=== PATIENT | male | born 1940 | race Asian ===

== ENCOUNTER 2017-08-25 09:09 | Outpatient (CLI) | payer MEDICARE, OTHER ==
[2017-08-25] MEDS ORDERED: IOHEXOL-300 100 ML VIAL IV ONE (09:51)
[2017-08-25] MEDS ORDERED: IV NS 0.9% 500 ML IV ONE (09:51)
== END 2017-08-25 23:59 | disposition home or self-care (01) ==
LOC: CT 09:09
PROVIDERS: ATTEND Internal Medicine Pulmonary Disease
DX: I67.2 Cerebral atherosclerosis (principal); G31.9 Degenerative disease of nervous system, unspecified; J32.2 Chronic ethmoidal sinusitis; J32.0 Chronic maxillary sinusitis
CPT/HCPCS: 70470; J7040; Q9967

== ENCOUNTER 2017-10-30 16:55 | Inpatient (IN) | payer MEDICARE, OTHER ==
[~2017-10-30] VITALS: Ht 170.2 cm; Wt 69.9 kg
--- NOTE | 2017-10-30 17:08 | NUR ---
MEG FROM [facility] DT FEVER X TODAY. PATIENT IS AWAKE, HOWEVER NOT VERBALLY RESPONSIVE. PATIENT NOTED WITH TRACHE-- NOTED WITH GREENISH SECRETION. PT SKIN IS WARM TO TOUCH, FEBRILE AT THIS TIME. O2 PROVIDED,. CONNECTED PT TO TELE MONITOR.
[2017-10-30] MEDS ORDERED: ACETAMINOPHEN 650 MG/SUPP.RECT RC ONE ×2 (17:46→18:00)
[2017-10-30 17:48] LABS: BASOPHILS % (AUTO) 0.3 % (0.0-2.0); EOSINOPHILS % (AUTO) 0.3 % (0.0-6.0); HEMATOCRIT 33 % (39-51); HEMOGLOBIN 11.4 g/dL (13.5-17.5); LYMPHOCYTES # (AUTO) 1.4 /CMM (0.8-4.8); LYMPHOCYTES % (AUTO) 9.6 % (20.0-44.0); MEAN CORPUSCULAR HGB CONC 34 g/dl (31.0-36.0); MEAN CORPUSCULAR VOLUME 88 fL (80-96); MONOCYTES # (AUTO) 0.5 /CMM (0.1-1.30); MONOCYTES % (AUTO) 3.5 % (2.0-12.0); NEUTROPHILS # (AUTO) 12.5 /CMM (1.8-8.9); NEUTROPHILS % (AUTO) 86.3 % (43.0-81.0); PLATELET COUNT (AUTO) 227 /CMM (150-450); RDW COEFFICIENT OF VARIATION 13.3 (11.5-15.0); WHITE BLOOD COUNT (AUTO) 14.4 K/uL (4.3-11.0)
[2017-10-30] MEDS ORDERED: IV NS 0.9% 1,000 ML BAG IV ONE (18:00)
[2017-10-30] MEDS ORDERED: VANCOMYCIN 1 GM in IV D5W 250 ML IV ONE (18:00)
[2017-10-30] MEDS ORDERED: PIPERACILLIN /TAZOBACTAM 3.375 G in IV D5W 50 ML IV ONE (18:00)
[2017-10-30 18:01] LABS: APPEARANCE,URINE Clear (CLEAR); BILIRUBIN,URINE Negative (NEGATIVE); BLOOD, URINE Negative Ery/uL (NEGATIVE); COLOR,URINE Yellow (YELLOW); KETONES,URINE Negative (NEGATIVE); LEUKOCYTE ESTERASE ,URINE Negative (NEGATIVE); NITRITE, URINE Negative (NEGATIVE); PROTEIN,URINE 30 mg/dl (NEGATIVE); UGLUCOSE Negative (NEGATIVE); UROBILINOGEN,URINE 0.2 EU/dL (0.2)
[2017-10-30 18:06] LABS: INR 0.98 (0.85-1.15)
[2017-10-30 18:11] LABS: TROPONIN I < 0.017 ng/mL (0.00-0.056)
[2017-10-30 18:13] LABS: ALANINE AMINOTRANSFERASE 22 U/L (12-78); ALBUMIN 2.9 g/dL (3.4-5.0); ALKALINE PHOSPHATASE 70 U/L (46-116); ASPARTATE AMINOTRANSFERASE 35 U/L (15-37); BILIRUBIN,DIRECT 0.1 mg/dL (0.0-0.2); BILIRUBIN,TOTAL 0.3 mg/dL (0.2-1.0); CALCIUM, SERUM 8.6 mg/dL (8.5-10.1); CARBON DIOXIDE 23 mmol/L (21-32); CHLORIDE 101 mmol/L (98-107); CREATININE 1.9 mg/dL (0.6-1.3); GLUCOSE 154 mg/dL (74-106); POTASSIUM 4.2 mmol/L (3.5-5.1); SODIUM SERUM 136 mmol/L (136-145); TOTAL PROTEIN, SERUM 7.6 g/dL (6.4-8.2); UREA NITROGEN, BLOOD 49 mg/dL (7-18)
--- NOTE | 2017-10-30 18:33 | NUR ---
RT NOTE: PT. 76 Y OLD MALE REC. IN ER TRACHED PORTEX#7 CUFFLESS FENESTRATED. PT IS AWAKE, BUT NOTAMBU BAG REMAIN AT THE BEDSIDE. FOLLOWING COMMAND, BILATERALLY CHEST RISE NOTED, B/S RHONCHI BILATERALLY, SUX'D FOR MODERATE AMT YELLOW/ REDDISH SECRETIONS, PLACED ON COOL AEROSOL PER MD ORDER 40% 10L/MIN VIA T-TUBE. PT. STABLE HR 97, SPO2 96% CONTINUE FOR MONITOR, REPORT WILL PASS TO PM SHIFT. Addendum: 10/30/17 at 1838 by ROSALIA QUEVEDO RT Amended: Links added.
[2017-10-30 18:49] LABS: BACTERIA,URINE Rare /HPF (None Seen); RBC,URINE 0-2 /HPF (0-2); SQUAMOUS EPITHELIAL CELL,UR Rare /HPF (None Seen); WBC,URINE 0-2 /HPF (0-3)
[2017-10-30 18:50] LABS: MUCUS,URINE Few /LPF (None Seen); URINE AMORPHOUS URATE Many /HPF (None Seen)
--- NOTE | 2017-10-30 18:55 | NUR ---
CALLED NURSING DIGITAL SERVICE ENGINEER AND REQUESTED A LOIDA BED FOR THIS PT.
--- NOTE | 2017-10-30 19:25 | NUR ---
ASSUMED CARE. RECEIVED REPORT FROM AM SHIFT CARRIE SALES. PT RESTING QUIETLY, NO ACUTE DISTRESS NOTED, RESP EVEN AND UNLABORED. NOTED PT WITH MODERATE SECRETION, PT SUCTIONED. PT SON AT BEDSIDE. CALL LIGHT WIHTIN REACH. PENDING HOSPITAL ADMISSION.
[2017-10-30] MEDS ORDERED: IPRA0.2S49 IH ×2 (19:34)
[2017-10-30] MEDS ORDERED: LATA2.5D7 EACHEYE (19:34)
[2017-10-30] MEDS ORDERED: DOCU-141 GT (19:34)
[2017-10-30] MEDS ORDERED: ALBU2.5V13 IH (19:34)
[2017-10-30] MEDS ORDERED: ACET-868 GT (19:34)
[2017-10-30] MEDS ORDERED: AMLO10TA6 GT (19:34)
[2017-10-30] MEDS ORDERED: OMEP20TA5 GT (19:34)
[2017-10-30] MEDS ORDERED: NUT.237L25 GT (19:34)
[2017-10-30] MEDS ORDERED: BRIN8DRO EACHEYE (19:34)
[2017-10-30] MEDS ORDERED: ALBU2.5V38 IH (19:34)
--- NOTE | 2017-10-30 20:26 | NUR ---
PT IS ASSIGNED TO [id number]:, PT IS DIAGNOSED WITH FEVER, HYPOXIA, AND PNEUMONIA, AND DR HOLLIS IS THE ACCEPTING MD
[2017-10-30] MEDS ORDERED: ACETAMINOPHEN 325 MG TABLET PO PRN (20:30)
[2017-10-30] MEDS ORDERED: IPRATROPIUM NEB FS 0.5 MG/2.5 ML AMPUL.NEB IH PRN (20:30)
[2017-10-30] MEDS ORDERED: MAG HYDROX/AL HYDROX/SIMETH 30 ML UDC PO PRN (20:30)
[2017-10-30] MEDS ORDERED: ZOLPIDEM TARTRATE 5 MG TABLET PO PRN (20:30)
[2017-10-30] MEDS ORDERED: VANCOMYCIN 0.75 GM in IV NS 0.9% 250 ML IV SCH (20:30)
[2017-10-30] MEDS ORDERED: Z GUARD REMEDY 2 OZ OINT TP PRN (20:30)
[2017-10-30] MEDS ORDERED: MAGNESIUM HYDROXIDE 30 ML UDC PO PRN (20:30)
[2017-10-30] MEDS ORDERED: ALBUTEROL FS 2.5 MG/3 ML VIAL.NEB NEB PRN (20:30)
[2017-10-30] MEDS ORDERED: ONDANSETRON HCL/PF 4 MG/2 ML VIAL IVP PRN (20:30)
[2017-10-30] MEDS ORDERED: FEE PK DOSING 1 MIN EA MC ONE (20:35)
--- NOTE | 2017-10-30 20:52 | NUR ---
REPORT CALLED TO TELE 1 CARRIE ROBISON. WILL TRANSPORT PT VIA ACLS PROTOCOL.
[2017-10-30] MEDS ORDERED: PIPERACILLIN /TAZOBACTAM 3.375 G in IV D5W 100 ML IV SCH (21:00)
--- NOTE | 2017-10-30 21:40 | NUR ---
TD RN NOTES RECEIVED FROM ER. REPORT GIVEN BY ED. PATIENT ON COOL AEROSOL 10L 60%. SATURATING 98%. NO RESPIRATORY DISTRESS. PT VITAL SIGNS CHECKED UPON ADMISSION. BP 133/67 HR OF 117. TEMPERATURE OF 102.7. RESPIRATION OF 19. PT IS 151LBS. HEAD TO TOE ASSESSMENT DONE. WILL CONTINUE TO MONITOR PT CLOSELY.
[2017-10-30] MEDS: IV NS 0.9% 1,000 ML IV PRN (22:19)
[2017-10-30] MEDS: ENOXAPARIN SODIUM 30 MG/0.3 ML DISP.SYRIN SQ SCH (22:21)
--- NOTE | 2017-10-30 22:38 | NUR ---
SPOKE TO MD HOLLIS , AWARE OF ELEVATED TEMP 102, OK TO GIVE TYLENOL VIA GT NOW.
[2017-10-30] MEDS: ACETAMINOPHEN 325 MG TABLET PO PRN (22:56)
[2017-10-30] MEDS: PIPERACILLIN /TAZOBACTAM 3.375 G in IV D5W 50 ML IV SCH (23:05)
--- NOTE | 2017-10-30 23:16 | NUR ---
TD RN NOTES PER PATIENT DAUGHTER ANA ROSA JOHN, PATIENT FULL CODE STATUS IN THE HOSPITAL.
[2017-10-31] VITALS: BP 113/66
[2017-10-31 04:00] VITALS: BP 123/60
[2017-10-31] MEDS: PIPERACILLIN /TAZOBACTAM 3.375 G in IV D5W 50 ML IV SCH ×4 (05:08→23:56)
[2017-10-31 07:06] LABS: BASOPHILS % (AUTO) 0.3 % (0.0-2.0); HEMATOCRIT 32 % (39-51); HEMOGLOBIN 10.8 g/dL (13.5-17.5); LYMPHOCYTES # (AUTO) 1.6 /CMM (0.8-4.8); LYMPHOCYTES % (AUTO) 12.2 % (20.0-44.0); MEAN CORPUSCULAR HGB CONC 33 g/dl (31.0-36.0); MEAN CORPUSCULAR VOLUME 88 fL (80-96); MONOCYTES # (AUTO) 0.7 /CMM (0.1-1.30); MONOCYTES % (AUTO) 5.7 % (2.0-12.0); NEUTROPHILS # (AUTO) 10.7 /CMM (1.8-8.9); NEUTROPHILS % (AUTO) 81.8 % (43.0-81.0); PLATELET COUNT (AUTO) 197 /CMM (150-450); RDW COEFFICIENT OF VARIATION 14.2 (11.5-15.0); RED BLOOD CELL COUNT(AUTO) 3.66 MIL/uL (4.5-6.0)
[2017-10-31 07:12] LABS: CALCIUM, SERUM 8.1 mg/dL (8.5-10.1); CARBON DIOXIDE 23 mmol/L (21-32); CHLORIDE 103 mmol/L (98-107); CREATININE 1.9 mg/dL (0.6-1.3); GLUCOSE 119 mg/dL (74-106); PHOSPHORUS 5.2 mg/dL (2.5-4.9); POTASSIUM 4.4 mmol/L (3.5-5.1); SODIUM SERUM 138 mmol/L (136-145); UREA NITROGEN, BLOOD 41 mg/dL (7-18)
[2017-10-31 07:14] LABS: CHOLESTEROL 106 mg/dL (<200); HDL CHOLESTEROL 48 mg/dL (40-60); LDL 61 mg/dL (0-99); TRIGLYCERIDES 77 mg/dL (30-150)
--- NOTE | 2017-10-31 07:29 | NUR ---
TD RN NOTES NO ACUTE CHANGES NOTED DURING THE SHIFT. HEAD OF BED ELEVATED. SIDE RAILS UP. PROVIDED COMFORT AND SAFETY. WILL ENDORSE TO THE AM NURSE FOR AVIVA
--- NOTE | 2017-10-31 07:43 | NUR ---
LOIDA RN NOTE PATIENT IN BED , BOTH EYES CLOSED RESPONSE TO VERBAL STIMULI , ON TELE MONITOR SR 88 , WITH COOLER AEROSOL TO 40% 10 L OF O2 , RT IJ HL INTACT ON IVF ORDERED , BED IN LOWEST AND LOCKED POSITION , CALL LIGHT WITHIN RAH TRACH AND ORAL SUCTION DONE
[2017-10-31 08:00] VITALS: BP 94/48
[2017-10-31] MEDS: ACETAMINOPHEN 325 MG TABLET PO PRN ×2 (08:57→08:59)
[2017-10-31] MEDS: AMLODIPINE BESYLATE 10 MG TABLET GT SCH (08:58)
[2017-10-31] MEDS ORDERED: DOCUSATE SODIUM 100 MG CAPSULE PO SCH (09:00)
--- NOTE | 2017-10-31 09:06 | NUR ---
LOIDA RN NOTE T 100.6 TYLENOL VIA G TUBE GIVEN ,WILL MONITOR CLOSELY
--- NOTE | 2017-10-31 11:54 | NUR ---
MS BUTLER NOTE PER RANDI NOWAK DNP OK TO START G TUBE FEEDING , SPOKE WITH DIETITIAN ÓSCAR MYERS AT 40 ML PER HOUR Addendum: 10/31/17 at 1157 by PIERO SYLVESTER RN T RECHECKED 98.2
[2017-10-31] MEDS: RENAL NOVASOURCE 1,000 ML BOTTLE GT PRN (13:14)
[2017-10-31] MEDS: HYDROCODONE/APAP 5/325MG 1 EACH TABLET PO PRN (14:16)
--- NOTE | 2017-10-31 14:27 | NUR ---
MS RN NOTE WITH SEVERE COUGH, TRACH SUCTION DONE , CALLED RT , DOING BREATHING TX AT THIS TIME , NORCO VIA G TUBE GIVEN BP 111/65 SAT 95% ,WILL MONITOR CLOSELY
--- NOTE | 2017-10-31 15:31 | NUR ---
MS RN NOTE PATIENT RESTING COMFORTABLY AT THIS TIME ,SAT 100% HR 43-44 DR RANDI CIFUENTES AWARE NO NEW ORDER GIVEN AT THIS TIME ,WILL F\U Addendum: 10/31/17 at 1549 by PIERO SYLVESTER RN RECHECKED PATIENT NOW AGAIN BP 101/57 HR 80 ,WILL MONITOR CLOSELY
[2017-10-31] MEDS: IV NS 0.9% 1,000 ML IV PRN (15:37)
[2017-10-31 16:00] VITALS: BP 101/57
[2017-10-31] MEDS: VANCOMYCIN 1 GM in IV D5W 250 ML IV SCH (17:10)
[2017-10-31] MEDS: LATANOPROST EYE DROP 0.005% 2.5 ML BOTTLE EACHEYE SCH (17:10)
--- NOTE | 2017-10-31 18:14 | NUR ---
MS RN NOTE TRACH SUCTION DONE , FAMILY AT BEDSIDE ,ALL NEEDS ATTENDED, WILL CONT TO MONITOR CLOSELY
[2017-10-31 20:00] VITALS: BP_SYST 109; BP_SYST 155; BP_SYST 97; BP_DIAS 53; BP_DIAS 57; BP_DIAS 61
--- NOTE | 2017-10-31 20:00 | NUR ---
RN NOTES RECEIVED PATIENT IN BED, OBTUNDED, OPENS EYES, ON COOL AEROSOL AT FI02 40%, NOTED THICK, WHITE AND FROTHY SECRETIONS, REQUIRES CONSTANT SUCTIONING, COUGHING INTERMITTENTLY, DEPENDENT ON PEG TUBE FEEDING, NO RESIDUAL, GOAL IS 40 ML/HR, RIGHT IJ PERIPHERAL LINE IS PATENT AND INFUSING WELL, KEPT SAFE AND COMFORTABLE, WILL CONTINUE TO MONITOR.
[2017-10-31] MEDS: ENOXAPARIN SODIUM 30 MG/0.3 ML DISP.SYRIN SQ SCH (20:51)
[2017-11-01] MEDS: ACETAMINOPHEN 650 MG/20.3 ML UDC GT PRN (02:44)
--- NOTE | 2017-11-01 02:55 | NUR ---
RN NOTES NOTED TEMP 101.4F, GIVEN TYLENOL 650 MG VIA GT, PERFORMED COOLING MEASURES, WILL CONTINUE TO MONITOR.
--- NOTE | 2017-11-01 04:00 | NUR ---
RN NOTES TEMP 100.1F, BP 100/65, HR 79 SPO2 ON COOL AEROSOL 100%, CONTINUE COOLING MEASURES, PATIENT NOT IN DISTRESS, CALM,
[2017-11-01] MEDS: PIPERACILLIN /TAZOBACTAM 3.375 G in IV D5W 50 ML IV SCH ×3 (05:26→19:02)
--- NOTE | 2017-11-01 06:27 | NUR ---
RN NOTES Patient is alert and awake, opens eyes, intermittent coughing, trach with cool aerosol, spo2 remained at 100%, not in apparent pain, no facial grimacing, no restlessness, being monitored for elevated temperature, given Tylenol and cooling measures, last temp 99.5F. Right IJ peripheral line is patent and infusing well, peg tube feeding is tolerated well, achieved goal of 40 cc/hr without residual. Skin is cool to touch, voiding without difficulty, provided good perineal care, repositioned, heels offloaded. All due medications given, kept safe and comfortable, call light within reach.
[2017-11-01 07:46] LABS: BASOPHILS % (AUTO) 0.4 % (0.0-2.0); EOSINOPHILS % (AUTO) 0.2 % (0.0-6.0); HEMATOCRIT 31 % (39-51); HEMOGLOBIN 10.4 g/dL (13.5-17.5); LYMPHOCYTES # (AUTO) 1.3 /CMM (0.8-4.8); LYMPHOCYTES % (AUTO) 25.8 % (20.0-44.0); MEAN CORPUSCULAR HGB CONC 34 g/dl (31.0-36.0); MEAN CORPUSCULAR VOLUME 88 fL (80-96); MONOCYTES # (AUTO) 0.2 /CMM (0.1-1.30); MONOCYTES % (AUTO) 4.7 % (2.0-12.0); NEUTROPHILS # (AUTO) 3.5 /CMM (1.8-8.9); NEUTROPHILS % (AUTO) 68.9 % (43.0-81.0); PLATELET COUNT (AUTO) 171 /CMM (150-450); RDW COEFFICIENT OF VARIATION 14.2 (11.5-15.0); RED BLOOD CELL COUNT(AUTO) 3.54 MIL/uL (4.5-6.0); WHITE BLOOD COUNT (AUTO) 5.1 K/uL (4.3-11.0)
[2017-11-01 07:56] LABS: CARBON DIOXIDE 25 mmol/L (21-32); CHLORIDE 108 mmol/L (98-107); CREATININE 1.6 mg/dL (0.6-1.3); GLUCOSE 115 mg/dL (74-106); PHOSPHORUS 3.9 mg/dL (2.5-4.9); POTASSIUM 3.8 mmol/L (3.5-5.1); SODIUM SERUM 141 mmol/L (136-145); UREA NITROGEN, BLOOD 35 mg/dL (7-18)
[2017-11-01 08:00] VITALS: BP 113/66
--- NOTE | 2017-11-01 08:04 | NUR ---
RN MS INITIAL NOTES RN RECEIVED PATIENT IN BED, OBTUNDED, OPENS EYES, ON COOL AEROSOL AT FI02 40%, NOTED THICK, WHITE AND FROTHY SECRETIONS, PEG TUBE FEEDING,IN PLACE NO RESIDUAL NOTED AT THIS TIME, G-TUBE FEEDING IS 40 ML/HR, RIGHT IJ PERIPHERAL LINE IS PATENT AND INFUSING WELL, CALL LIGHT WITHIN REACH PATIENT CLEAN DRY AND INTACT. RN WILL CONTINUE TO MONITOR PATIENT THROUGHOUT THE DAY.
[2017-11-01] MEDS: DOCUSATE SODIUM LIQ 100 MG/10 ML UDC GT SCH (09:51)
[2017-11-01] MEDS: AMLODIPINE BESYLATE 10 MG TABLET GT SCH (09:52)
[2017-11-01] MEDS: IV NS 0.9% 1,000 ML IV PRN (11:47)
[2017-11-01] MEDS: LATANOPROST EYE DROP 0.005% 2.5 ML BOTTLE EACHEYE SCH (18:00)
--- NOTE | 2017-11-01 18:27 | NUR ---
rn note rn contact food services for g-tube feeding awaiting renal - [employer] replacement bag
--- NOTE | 2017-11-01 19:42 | NUR ---
Rn note patient table throughout the day plan of care discussed with patient daughter , patient kept clean dry and intact, frequent suctioning throughout the day to alleivate moderate amount of secretions G-TUBE FEEDING IN PLACE RN CONTACTED KITCHEN TO RECEIVE A NEW BAG OF G-TUBE FEEDING CONTINUATION OF CARE ENDORSED TO PM RN
[2017-11-01] MEDS: VANCOMYCIN 1 GM in IV D5W 250 ML IV SCH (19:48)
[2017-11-01 20:00] VITALS: BP 109/57
[2017-11-01] MEDS: HYDROCODONE/APAP 5/325MG 1 EACH TABLET PO PRN (21:17)
[2017-11-01] MEDS: ENOXAPARIN SODIUM 30 MG/0.3 ML DISP.SYRIN SQ SCH (21:18)
[2017-11-02] MEDS: PIPERACILLIN /TAZOBACTAM 3.375 G in IV D5W 50 ML IV SCH ×3 (00:33→11:36)
[2017-11-02] MEDS: RENAL NOVASOURCE 1,000 ML BOTTLE GT PRN (01:32)
[2017-11-02] MEDS: HYDROCODONE/APAP 5/325MG 1 EACH TABLET PO PRN ×2 (01:32→06:12)
[2017-11-02 04:00] VITALS: BP_SYST 108; BP_SYST 131; BP_DIAS 46; BP_DIAS 47
[2017-11-02] MEDS: ACETAMINOPHEN 650 MG/20.3 ML UDC GT PRN (04:55)
[2017-11-02] MEDS: IV NS 0.9% 1,000 ML IV PRN (04:55)
--- NOTE | 2017-11-02 07:00 | NUR ---
REPORT RECEIVED AT THE BEDSIDE. PATIENT IS SLEEPING. NO SOB OR DISTRESS NOTED. PATIENT DOES NOT APPEAR TO BE IN PAIN, NO FACIAL GRIMACE NOTED. PATIENT SUCTIONED AT THIS TIME. LARGE THICK SECRETIONS NOTED. CONTINUOUS O2 MONITORING SHOW SATING AT 100%. BED IN A LOW POSITION, CALL LIGHT WITHIN PATIENT REACH. WILL MONITOR AND SUCTION NEEDED.
[2017-11-02 08:00] VITALS: BP 107/60
[2017-11-02 08:13] LABS: CALCIUM, SERUM 7.8 mg/dL (8.5-10.1); CARBON DIOXIDE 24 mmol/L (21-32); CHLORIDE 111 mmol/L (98-107); CREATININE 1.3 mg/dL (0.6-1.3); GLUCOSE 146 mg/dL (74-106); MAGNESIUM 1.7 mg/dL (1.8-2.4); PHOSPHORUS 2.8 mg/dL (2.5-4.9); POTASSIUM 3.2 mmol/L (3.5-5.1); SODIUM SERUM 142 mmol/L (136-145); UREA NITROGEN, BLOOD 23 mg/dL (7-18)
[2017-11-02 08:14] LABS: BASOPHILS % (AUTO) 0.3 % (0.0-2.0); EOSINOPHILS % (AUTO) 0.1 % (0.0-6.0); HEMATOCRIT 29 % (39-51); HEMOGLOBIN 9.8 g/dL (13.5-17.5); LYMPHOCYTES # (AUTO) 1.6 /CMM (0.8-4.8); LYMPHOCYTES % (AUTO) 44.1 % (20.0-44.0); MEAN CORPUSCULAR HGB CONC 34 g/dl (31.0-36.0); MEAN CORPUSCULAR VOLUME 87 fL (80-96); MONOCYTES # (AUTO) 0.3 /CMM (0.1-1.30); MONOCYTES % (AUTO) 7.3 % (2.0-12.0); NEUTROPHILS # (AUTO) 1.8 /CMM (1.8-8.9); NEUTROPHILS % (AUTO) 48.2 % (43.0-81.0); PLATELET COUNT (AUTO) 143 /CMM (150-450); RDW COEFFICIENT OF VARIATION 13.6 (11.5-15.0); RED BLOOD CELL COUNT(AUTO) 3.34 MIL/uL (4.5-6.0); WHITE BLOOD COUNT (AUTO) 3.7 K/uL (4.3-11.0)
[2017-11-02 08:28] VITALS: BP 133/58
[2017-11-02] MEDS: AMLODIPINE BESYLATE 10 MG TABLET GT SCH (08:28)
[2017-11-02] MEDS: DOCUSATE SODIUM LIQ 100 MG/10 ML UDC GT SCH (08:28)
--- NOTE | 2017-11-02 08:30 | NUR ---
PT NOTED TO HAVE WHAT APPEARS TO BE DTI WITH EXCORIATION ON BILATERAL BUTTOCKS. WILL TAKE PICTURES AND PLACE A WOUND CONSULT. ALSO TO ORDER FIRST STEP MATTRESS.
[2017-11-02] MEDS: POTASSIUM CHLORIDE 20 MEQ POWDER PACKET GT SCH ×2 (10:34→11:36)
[2017-11-02] MEDS: Magnesium 1GM/D5W 100ML PREMIX 100 ML IV SCH ×2 (10:35→11:36)
[2017-11-02] MEDS ORDERED: LEVO500T90 PO (12:39)
--- NOTE | 2017-11-02 16:03 | NUR ---
DISCHARGE INSTRUCTIONS GIVEN TO SNF PATIENT IS OBTUNDED AND UNABLE. PAPERWORK SIGNED BY TWO RNS, NO BELONGINGS NOTED. FLU SHOT OUT OF SEASON AND PNEUMONIA RECEIVED 2014. IV REMOVED AND PRESSURE APPLIED, NO BLEEDING NOTED AT THE SITE. GTUBE FEEDING STOPPED, TUBING FLUSHED AND CLAMPED. PT SUCTIONED PRIOR TO TRANSPORT, TOLERATED WELL. CALLED NUMBER PROVIDED FOR DAUGHTER AND LEFT A MESSAGE REPORTING DISCHARGE, NO RETURN CALL. PATIENT LEFT IN STABLE CONDITION, VIA AMBULANCE TO [facility]. REPORT CALLED TO EDSON BUTLER.
== END 2017-11-02 16:10 | DRG 871 ==
LOC: ER 17:01 → TELE-TD 20:29 → MEDSG1 10-31 11:22
PROVIDERS: ADMIT Internal Medicine; ATTEND Internal Medicine
DX: A41.9 Sepsis, unspecified organism (principal); R53.2 Functional quadriplegia; N17.0 Acute kidney failure with tubular necrosis; J96.21 Acute and chronic respiratory failure with hypoxia; G93.49 Other encephalopathy; E44.0 Moderate protein-calorie malnutrition; Z93.0 Tracheostomy status; I48.91 Unspecified atrial fibrillation; R13.10 Dysphagia, unspecified; Z93.1 Gastrostomy status; I12.9 Hypertensive chronic kidney disease with stage 1 through stage 4 chronic kidney disease, or unspecified chronic kidney disease; Z86.73 Personal history of transient ischemic attack (TIA), and cerebral infarction without residual deficits; K21.9 Gastro-esophageal reflux disease without esophagitis; E78.5 Hyperlipidemia, unspecified; Z79.899 Other long term (current) drug therapy; I25.10 Atherosclerotic heart disease of native coronary artery without angina pectoris; I70.0 Atherosclerosis of aorta; D63.8 Anemia in other chronic diseases classified elsewhere; F03.90 Unspecified dementia, unspecified severity, without behavioral disturbance, psychotic disturbance, mood disturbance, and anxiety; N18.9 Chronic kidney disease, unspecified
CPT/HCPCS: 31720; 36415; 71045-TC; 80048-TC; 80061-TC; 80076-TC; 81000-TC; 83605-TC; 83735-TC; 84100-TC; 84484-TC; 85025-TC; 85730-TC; 87040-TC; 87081-TC; 87086-TC; 94640-TC; 94664-TC; 94760-TC; A4606; A7526; J1650; J2543; J3370; J3475; J7030; J7050; J7060; Z7610

== ENCOUNTER 2018-07-30 08:15 | Inpatient (IN) | payer MEDICARE, OTHER ==
[2018-07-30] VITALS (14 sets, daily range): BP systolic 101–133; BP diastolic 40–80
[~2018-07-30] VITALS: Ht 165.1 cm; Wt 78.1 kg
[~2018-07-30 08:15] MED LIST: ACET-868 GT; ALBU2.5V13 IH; ALBU2.5V38 IH; AMLO10TA7 GT; BRIN8DRO EACHEYE; DOCU-141 GT; IPRA0.2S49 IH; LATA2.5D7 EACHEYE; LEVO500T90 PO; NUT.237L25 GT; OMEP20TA5 GT
--- NOTE | 2018-07-30 08:16 | NUR ---
MEG FROM SNF, SOB SINCE 0600, LABORED BREATHING, ON NRB MASK PER EMS, 88%, ALTERED MENTAL STATUS, USUALLY A&Ox1. TO ER BED 8, HOOKED TO SALES FLOOR MANAGER, DR TORRES AT BEDSIDE.
[2018-07-30] MEDS ORDERED: MEROPENEM 1 G in IV NS 0.9% 100 ML IV ONE (08:30)
[2018-07-30] MEDS ORDERED: VANCOMYCIN 1 GM in IV D5W 250 ML IV ONE (08:30)
[2018-07-30] MEDS ORDERED: ACETAMINOPHEN 650 MG/SUPP.RECT RC ONE ×2 (08:30→08:31)
[2018-07-30] MEDS ORDERED: IV NS 0.9% 1,000 ML BAG IV ONE ×2 (08:30)
[2018-07-30] MEDS ORDERED: AMIN30LI2 GT (08:40)
[2018-07-30] MEDS ORDERED: VIT500LI GT (08:40)
[2018-07-30] MEDS ORDERED: SACC250C GT (08:40)
[2018-07-30] MEDS ORDERED: ACET650S26 GT (08:40)
[2018-07-30] MEDS ORDERED: HYPR15DR5 EACHEYE (08:40)
[2018-07-30] MEDS ORDERED: POLY15DR40 EACHEYE (08:40)
[2018-07-30] MEDS ORDERED: FERR300L GT (08:40)
[2018-07-30] MEDS ORDERED: NA P133E RC (08:40)
[2018-07-30] MEDS ORDERED: IPRA0.2S9 IH ×2 (08:40)
[2018-07-30] MEDS ORDERED: BISA10SU8 RC (08:40)
[2018-07-30] MEDS ORDERED: DOCU50LI GT (08:40)
[2018-07-30] MEDS ORDERED: MULT-447 GT (08:40)
[2018-07-30] MEDS ORDERED: ACET-2605 GT (08:40)
[2018-07-30] MEDS ORDERED: FAMO20TA8 GT (08:40)
[2018-07-30] MEDS ORDERED: MAGN400O6 GT (08:40)
--- NOTE | 2018-07-30 08:48 | NUR ---
PT CAN GO TO 308-2
[2018-07-30 08:51] LABS: BASOPHILS # (AUTO) 0.1 /CMM (0.0-0.2); BASOPHILS % (AUTO) 0.2 % (0.0-2.0); EOSINOPHILS % (AUTO) 0.2 % (0.0-6.0); HEMATOCRIT 45 % (39-51); HEMOGLOBIN 14.2 g/dL (13.5-17.5); LYMPHOCYTES # (AUTO) 1.1 /CMM (0.8-4.8); LYMPHOCYTES % (AUTO) 4.8 % (20.0-44.0); MEAN CORPUSCULAR HGB CONC 32 g/dl (31.0-36.0); MEAN CORPUSCULAR VOLUME 91 fL (80-96); MONOCYTES # (AUTO) 0.7 /CMM (0.1-1.30); MONOCYTES % (AUTO) 3.1 % (2.0-12.0); NEUTROPHILS # (AUTO) 21.9 /CMM (1.8-8.9); NEUTROPHILS % (AUTO) 91.7 % (43.0-81.0); PLATELET COUNT (AUTO) 240 /CMM (150-450); RED BLOOD CELL COUNT(AUTO) 4.87 MIL/uL (4.5-6.0); WHITE BLOOD COUNT (AUTO) 23.8 K/uL (4.3-11.0)
[2018-07-30 09:00] LABS: CALCIUM, SERUM 8.9 mg/dL (8.5-10.1); CARBON DIOXIDE 32 mmol/L (21-32); CHLORIDE 102 mmol/L (98-107); CREATININE 1.7 mg/dL (0.6-1.3); GLUCOSE 154 mg/dL (74-106); SODIUM SERUM 135 mmol/L (136-145); UREA NITROGEN, BLOOD 27 mg/dL (7-18)
[2018-07-30 09:06] LABS: ALANINE AMINOTRANSFERASE 38 U/L (12-78); ALBUMIN 3.2 g/dL (3.4-5.0); ALKALINE PHOSPHATASE 80 U/L (46-116); ASPARTATE AMINOTRANSFERASE 38 U/L (15-37); BILIRUBIN,DIRECT 0.1 mg/dL (0.0-0.2); BILIRUBIN,TOTAL 0.5 mg/dL (0.2-1.0); TOTAL PROTEIN, SERUM 8.1 g/dL (6.4-8.2)
[2018-07-30 09:17] LABS: APPEARANCE,URINE Slightly Cloudy (CLEAR); BILIRUBIN,URINE Negative (NEGATIVE); BLOOD, URINE Trace-intact Ery/uL (NEGATIVE); COLOR,URINE Yellow (YELLOW); KETONES,URINE Trace (NEGATIVE); LEUKOCYTE ESTERASE ,URINE Negative (NEGATIVE); NITRITE, URINE Negative (NEGATIVE); PH,URINE 6.5 (5.0-8.0); PROTEIN,URINE 100 mg/dl (NEGATIVE); UGLUCOSE Negative (NEGATIVE); UROBILINOGEN,URINE 0.2 EU/dL (0.2)
[2018-07-30 09:28] LABS: BACTERIA,URINE Few /HPF (None Seen); SQUAMOUS EPITHELIAL CELL,UR Moderate /HPF (None Seen)
--- NOTE | 2018-07-30 09:40 | NUR ---
REPORT GIVEN TO TERRI BUTLER OF MED-SURG UNIT
--- NOTE | 2018-07-30 09:48 | NUR ---
JUANIS HINDS AT BEDSIDE
--- NOTE | 2018-07-30 09:58 | NUR ---
GUZMAN LEMOS WANTS LOIDA STATUS, CALLED NURSING AIRPLANE WOODWORKER FOR LOIDA BED
--- NOTE | 2018-07-30 10:30 | NUR ---
ICU/RN: Pt received from ER, audible wheezing, crackles throughout lungs, pt unable to track, follow commands, responds to light pain and suctioning. Old sacral scar, perineal excoriation noted. BLE ext edema, bilat heels offloaded and elevated. IV HL inserted L thumb #22, FC inserted draining well to gravity. For full nursing assessment, refer to flowsheet.
--- NOTE | 2018-07-30 10:30 | NUR ---
REPORT GIVEN TO CHATO BUTLER FOR ADMISSION
[2018-07-30] MEDS ORDERED: IV NS 0.9% 1,000 ML IV PRN (11:15)
[2018-07-30] MEDS ORDERED: MAG HYDROX/AL HYDROX/SIMETH 30 ML UDC GT PRN (11:30)
[2018-07-30] MEDS ORDERED: MAGNESIUM HYDROXIDE 30 ML UDC GT PRN (11:30)
[2018-07-30] MEDS ORDERED: ACETAMINOPHEN 325 MG TABLET MC PRN (11:30)
[2018-07-30] MEDS ORDERED: HYDROCODONE/APAP 5/325MG 1 EACH TABLET GT PRN (11:30)
[2018-07-30] MEDS ORDERED: TEMAZEPAM 15 MG CAPSULE PO PRN (11:30)
[2018-07-30] MEDS ORDERED: PANTOPRAZOLE 40 MG VIAL IV SCH (11:30)
[2018-07-30] MEDS ORDERED: ONDANSETRON HCL/PF 4 MG/2 ML VIAL IVP PRN (11:30)
[2018-07-30] MEDS ORDERED: FEE PK DOSING 1 MIN EA MC ONE (11:39)
--- NOTE | 2018-07-30 12:45 | NUR ---
ICU/RN: Spoke with Rosy Laboy, pt's daughter, provided updates. Per daughter, pt is a DNR/DNI. Family is on the way.
[2018-07-30] MEDS ORDERED: MEROPENEM 500 MG in IV NS 0.9% 50 ML IV SCH (13:00)
--- NOTE | 2018-07-30 13:30 | NUR ---
ICU/RN: Roger Cleary, UNIVERSITY RELATIONS DIRECTOR at bedside, extensive discussion with Rosy Laboy (daughter) regarding POC. Questions answered.
--- NOTE | 2018-07-30 15:00 | NUR ---
ICU/RN: Hygienic care rendered. NT suctioning performed, sputum collected and sent to lab. R Nare nasal trumpet in place. HOB remained elevated per aspiration precautions.
[2018-07-30] MEDS ORDERED: LEVALBUTEROL HCL NEB 1.25 MG/0.5 ML VIAL.NEB NEB SCH (17:00)
[2018-07-30] MEDS ORDERED: SCOPOLAMINE HBR 1 EA PATCH.TD72 TD SCH (18:00)
[2018-07-30] MEDS ORDERED: MORPHINE SULFATE PF DRIP 250 MG in IV D5W 240 ML IV PRN (18:00)
--- NOTE | 2018-07-30 18:00 | NUR ---
ICU/RN: Family at bedside; requesting comfort measures only, discussed with CANELO Cleary. Orders noted and carried out. Will initiate morphine drip as ordered for pt comfort.
--- NOTE | 2018-07-30 19:15 | NUR ---
ICU/RN: Pt in bed, on morphine drip, titrated up to 7mg/hr dt facial grimacing and labored breathing with noc Rn at bedside. Report given.
--- NOTE | 2018-07-30 19:45 | NUR ---
MILK INSPECTOR NOTES INCREASED MORPHINE DRIP TO 9 MG/HR. PATIENT NOTED W/ LABORED BREATHING & INCREASED RESPIRATIONS. NOTIFIED RN LPN CNACARRIE MONTES
[2018-07-30] MEDS ORDERED: MEROPENEM 1 G in IV NS 0.9% 100 ML IV SCH (20:00)
--- NOTE | 2018-07-30 20:00 | NUR ---
RN OPENING NOTES RECEIVED REPORT FROM CHATO BUTLER. PATIENT OBTUNDED. SOME LABORED BREATHING NOTED BUT TOLERATING O2 @ 10LPM VIA SIMPLE MASK & SATING @ 93%. ON TELE W/ SINUS TACH, HR 112. LEFT FOREARM IV #20 & LEFT THUMB IV #22 INTACT & PATENT W/ DRESSING CDI & MORPHINE DRIP INFUSING @ 7 MG/HR W/ TITRATION PER PROTOCOL. GT CLAMPED. SAFETY MEASURES IN PLACE W/ SIDE RAILS UP & BED ALARM ON. TURNED & REPOSITIONED FOR COMFORT. WILL CONTINUE TO MONITOR CLOSELY.
[2018-07-30] MEDS ORDERED: HEPARIN SODIUM, PORCINE 5000 UNITS/1 ML VIAL SQ SCH (21:00)
--- NOTE | 2018-07-30 21:00 | NUR ---
TITLE CHECKER NOTES INCREASED MORPHINE DRIP TO 10 MG/HR. PATIENT STILL NOTED W/ LABORED BREATHING & INCREASED RESPIRATIONS. NOTIFIED PLASTIC TOOL MAKERCARRIE MONTES
--- NOTE | 2018-07-30 22:00 | NUR ---
ANALYTICAL STATISTICIAN NOTES INCREASED MORPHINE DRIP TO 12 MG/HR. PATIENT CONTINUES TO HAVE INCREASED RESPIRATIONS & LABORED BREATHING. NOTIFIED DIRECTOR OF PUBLIC SAFETY EVELYN.
--- NOTE | 2018-07-30 22:15 | NUR ---
ACID TENDER NOTES PATIENT'S RR = 8 W/ SLOWER RESPIRATIONS NOTED. DECREASED MORPHINE DRIP TO 8 MG/HR. NOTIFIED WOODWIND INSTRUMENTS INSPECTORCARRIE MONTES
--- NOTE | 2018-07-30 22:42 | NUR ---
ICU/RN STRAIGHT LINE ON THE MONITOR,NO AUDIBLE HEART TONES ,NO PALPABLE PULSES.PUPILS FIXED AT 3MM.PRONOUNCED .
--- NOTE | 2018-07-31 01:07 | NUR ---
BOAT DESIGNER NOTES PATIENT'S BODY TRANSPORTED TO [facility] @ 0057. TELEPHONE CONSENT OBTAINED FROM DAUGHTER, ANA ROSA JOHN, FOR RELEASE OF BODY.
[2018-07-31] MEDS ORDERED: VANCOMYCIN 1 GM in IV D5W 250 ML IV SCH (03:00)
== END 2018-07-31 00:41 | disposition expired | DRG 871 ==
LOC: ER 08:19 → MED 09:15 → ICU 10:40
PROVIDERS: ADMIT Nurse Practitioner Acute Care; ATTEND Nurse Practitioner Acute Care
DX: A41.9 Sepsis, unspecified organism (principal); J69.0 Pneumonitis due to inhalation of food and vomit; R65.21 Severe sepsis with septic shock; R53.2 Functional quadriplegia; N17.0 Acute kidney failure with tubular necrosis; G93.41 Metabolic encephalopathy; E43 Unspecified severe protein-calorie malnutrition; J96.21 Acute and chronic respiratory failure with hypoxia; E87.2 Acidosis; D68.59 Other primary thrombophilia; E78.5 Hyperlipidemia, unspecified; D63.8 Anemia in other chronic diseases classified elsewhere; Z79.51 Long term (current) use of inhaled steroids; Z79.899 Other long term (current) drug therapy; Z66 Do not resuscitate; Z51.5 Encounter for palliative care; Z93.1 Gastrostomy status; Z93.0 Tracheostomy status; Z86.73 Personal history of transient ischemic attack (TIA), and cerebral infarction without residual deficits; R13.10 Dysphagia, unspecified; K21.9 Gastro-esophageal reflux disease without esophagitis; I25.10 Atherosclerotic heart disease of native coronary artery without angina pectoris; F03.90 Unspecified dementia, unspecified severity, without behavioral disturbance, psychotic disturbance, mood disturbance, and anxiety; I12.9 Hypertensive chronic kidney disease with stage 1 through stage 4 chronic kidney disease, or unspecified chronic kidney disease; N18.9 Chronic kidney disease, unspecified; F41.9 Anxiety disorder, unspecified; H04.123 Dry eye syndrome of bilateral lacrimal glands; I48.91 Unspecified atrial fibrillation
CPT/HCPCS: 36415; 71045-TC; 80048-TC; 80076-TC; 81000-TC; 82962-TC; 83605-TC; 84484-TC; 85025-TC; 85730-TC; 87040-TC; 87070-TC; 87081-TC; 87086-TC; 87400; A4216; A4624; C9113; G0378; J2185; J2274; J3370; J7030; J7060